=== PATIENT | female | born 1990 | race Asian ===

== ENCOUNTER 2017-02-24 11:19 | Emergency (ER) | payer OTHER ==
[2017-02-24 11:27] VITALS: BP 107/63
--- NOTE | 2017-02-24 12:04 | UC ---
Complaint Female HPI - HPI Summary HPI Summary: here for STI's denies any symptoms-denies vaginal discahere, itchinees, no pain with urination , no vaginal lesions had sexeual encounter 1 month ago with partner who gave her chlamydia LMP 01/29/17- concerned about about being not using condoms d/t alcohol use not in the habit of using them - History Of Current Complaint Chief Complaint: UCSTDScreening Stated Complaint: POSSIBLE UTI Time Seen by Provider: 02/24/17 11:57 Hx Obtained From: Patient Hx Last Menstrual Period: 01/15/17 - Allergies/Home Medications Allergies/Adverse Reactions: Allergies Allergy/AdvReac Type Severity Reaction Status Date / Time No Known Allergies Allergy Verified 02/24/17 11:28 PMH/Surg Hx/FS Hx/Imm Hx Previously Healthy: No - Surgical History Surgical History: None - Family History Known Family History: Negative: Cardiac Disease, Hypertension, Diabetes - Social History Occupation: Employed Full-time Lives: With Family Alcohol Use: Weekly Substance Use Type: Marijuana Substance Use Comment - Amount & Last Used: 1 month ago Smoking Status (MU): Never Smoked Tobacco Have You Smoked in the Last Year: No Review of Systems Constitutional: Negative Skin: Negative Eyes: Negative ENT: Negative Respiratory: Negative Cardiovascular: Negative Gastrointestinal: Negative Genitourinary: Negative Motor: Negative Neurovascular: Negative Musculoskeletal: Negative Neurological: Negative Psychological: Negative All Other Systems Reviewed And Are Negative: Yes Physical Exam Triage Information Reviewed: Yes Appearance: Well-Appearing, No Pain Distress Vital Signs: Initial Vital Signs Temp 99.5 F 02/24/17 11:20 Pulse 67 02/24/17 11:20 Resp 18 02/24/17 11:20 BP 107/63 02/24/17 11:20 Pulse Ox 100 02/24/17 11:20 Vital Signs Reviewed: Yes Eyes: Positive: Conjunctiva Clear ENT: Positive: Pharynx normal, TMs normal Neck: Positive: No Lymphadenopathy Respiratory: Positive: Lungs clear, Normal breath sounds, No respiratory distress Cardiovascular: Positive: RRR, No Murmur, Pulses Normal Abdomen Description: Positive: Nontender, Soft Bowel Sounds: Positive: Present Musculoskeletal: Positive: No Edema Neurological: Positive: Alert Psychological Exam: Normal Skin Exam: Normal Complaint Female Dx - Course Course Of Treatment: exam completed. will treat for chlamydia with zithromax call pt with test resuts - Differential Dx/Diagnosis Differential Diagnosis/HQI/PQRI: Sexually Transmitted Disease, Other - , Provider Diagnoses: screening for STI's. test Discharge - Discharge Plan Condition: Stable Disposition: HOME Patient Education Materials: Sexually Transmitted Diseases (ED), Condom Use (ED ), Safe Sex (ED) Referrals: No Primary Care Phys,NOPCP [Primary Care Provider] - [facility] [Outside] Additional Instructions: you will be called if any of your tests are positive Please review your discharge instructions. If your symptoms do not improve please call your primary care provider or return to urgent care.
[2017-02-24] MEDS ORDERED: Azithromycin TAB* 250 MG PO ONE ×2 (12:09→12:32)
[2017-02-25 11:39] LABS: Syphilis Index < 0.1 Index
== END 2017-02-24 12:57 | disposition home or self-care (01) ==
LOC: UCEAST 11:19
DX: Z20.2 Contact with and (suspected) exposure to infections with a predominantly sexual mode of transmission (principal); Z86.19 Personal history of other infectious and parasitic diseases; Z32.00 Encounter for pregnancy test, result unknown
CPT/HCPCS: 36415; 84702; 86592; 86703; 86803; 87491; 87591; 99212; A9270-GY; G0463